=== PATIENT | female | born 1965 | race Caucasian/White ===

== ENCOUNTER 2025-06-14 13:23 | Emergency (ER) | payer MEDICARE, OTHER ==
--- NOTE | 2025-06-14 13:47 | ED ---
GI Bleed HPI - General Chief complaint: GI Bleed Stated complaint: Blood in Stool Time Seen by Provider: 06/14/25 13:34 Source: patient, RN notes reviewed Mode of arrival: ambulatory Limitations: no limitations - History of Present Illness Initial comments: This is a 59-year-old female who presents to the emergency department for abdominal pain and rectal bleeding. Patient states that last night after eating she had several episodes of vomiting as well as diarrhea. States that this morning the diarrhea persisted and she had 3 bowel movements with blood clots and bright red blood mixed in with her stool. She does continue to feel nauseous but has not had any additional episodes of vomiting. Also reports lower abdominal pain. She has a history of hernias and is unsure if it is related to that. Denies any history of rectal bleeding. Not taking any blood thinners. She did have a colonoscopy a few years ago and is not due to have another one for 4 years. She was found to have benign polyps that were removed. Denies any history of diverticulitis or diverticulosis. - Related Data Previous Rx's Medication Instructions Recorded Amoxic-Pot Clav 875-125Mg 1 tab PO Q12HR 10 Days #20 tab 06/14/25 [Augmentin 875-125] Ondansetron Odt [Zofran Odt] 4 mg PO Q8HR PRN #20 tab 06/14/25 Allergies Allergy/AdvReac Type Severity Reaction Status Date / Time guaifenesin [From Mucinex] Allergy Anaphylaxis Verified 06/14/25 13:30 morphine Allergy Rash/Hives Verified 06/14/25 13:30 ropinirole [From Requip] Allergy Unknown Verified 06/14/25 13:30 Review of Systems ROS Statement: Those systems with pertinent positive or pertinent negative responses have been documented in the HPI. ROS Other: All systems not noted in ROS Statement are negative. Past Medical History Past Medical History: Diabetes Mellitus, Hypertension History of Any Multi-Drug Resistant Organisms: None Reported Past Surgical History: Back Surgery, Hernia Repair Past Psychological History: No Psychological Hx Reported Smoking Status: Never smoker Past Alcohol Use History: Rare Past Drug Use History: None Reported General Exam Limitations: no limitations General appearance: alert, in no apparent distress Head exam: Present: atraumatic, normocephalic, normal inspection Respiratory exam: Present: normal lung sounds bilaterally. Absent: respiratory distress, wheezes, rales, rhonchi, stridor Cardiovascular Exam: Present: regular rate, normal rhythm GI/Abdominal exam: Present: soft, tenderness (Lower abdomen). Absent: distended Neurological exam: Present: alert, oriented X3, CN II-XII intact Psychiatric exam: Present: normal affect, normal mood Skin exam: Present: warm, dry, intact, normal color. Absent: rash Course Vital Signs 06/14/25 06/14/25 13:26 16:07 Temperature 97.9 F 98.1 F Pulse Rate 83 63 Respiratory 18 17 Rate Blood Pressure 149/88 119/70 O2 Sat by Pulse 99 99 Oximetry Medical Decision Making - Medical Decision Making This is a 59-year-old female who presents to the emergency department for abdominal pain and rectal bleeding. Was pt. sent in by a medical professional or institution? @ -No Did you speak to anyone other than the patient for history? @ -No Did you review nursing and triage notes? @ -Yes, and I agree, it is accurate with regards to the patient's symptoms. Were old charts reviewed? @ -No Differential Diagnosis? @ -Differential Abdominal Pain Women: Appendicitis, Cholecystitis, diverticulosis, ischemic bowel, pancreatitis, hepatitis, UTI, gastroenteritis, AAA, incarcerated hernia, bowel obstruction, constipation, inflammatory bowel, hepatitis, peptic ulcer disease, splenic i nfarction, perforated viscus, vulvitis, ovarian torsion, PID, kidney stone, placenta abruption, this is not meant to be an all-inclusive list EKG interpreted by me (3pts min.)? @ -Not obtained X-rays interpreted by me (1pt min.)? @ -Not obtained CT interpreted by me (1pt min.)? @ -CT scan of the abdomen and pelvis obtained. My interpretation identifies wall thickening of the descending colon. U/S interpreted by me (1pt. min.)? @ -Not obtained What testing was considered but not performed? (CT, X-rays, U/S, labs)? Why? @ -None What meds were considered but not given? Why? @ -None Did you discuss the management of the patient with other professionals? @ -No Did you reconcile home meds? @ -No Was smoking cessation discussed for >3mins.? @ -No Was critical care preformed (if so, how long)? @ -No Were there social determinants of health that impacted care today? How? (Homelessness, low income, unemployed, alcoholism, drug addiction, transportation, low edu. Level, literacy, decrease access to med. care, prison, rehab)? @ -No Was there de-escalation of care discussed even if they declined? (Discuss DNR or withdrawal of care, Hospice)? @ -No What co-morbidities impacted this encounter? (DM, HTN, Smoking, COPD, CAD, Cancer, CVA, Hep., AIDS, mental health diagnosis, sleep apnea, morbid obesity)? @ -DM Was patient admitted / discharged? @ -Discharged. Lab work demonstrates leukocytosis with a white blood cell count of 14.94 and was otherwise unremarkable. Hemoglobin within normal limits. CT scan of the abdomen and pelvis demonstrates edema and wall thickening in the descending colon consistent with acute diverticulitis or ascending colitis. There is no bowel obstruction, abscess, or free air. Findings reviewed with the patient. Bleeding is likely related to the diverticulitis and suspected diverticular bleed. She did feel that symptoms were controlled and she was comfortable going home to manage her symptoms. Augmentin and Zofran prescribed for further management of suspected diverticulitis. Strict return parameters discussed. Advised follow-up with her PCP for reevaluation. Patient discharged home in stable condition. Case discussed with ED attending Dr. Simms. Return precautions reviewed in depth, the patient is instructed to return to the emergency department with any new, worsening, or concerning symptoms. Patient verbalized understanding. Undiagnosed new problem with uncertain prognosis? @ -None Drug Therapy requiring intensive monitoring for toxicity (Heparin, Nitro, Insulin, Cardizem)? @ -None Were any procedures done? @ -None Diagnosis/symptom? @ -Diverticulitis, rectal bleeding Acute, or Chronic, or Acute on Chronic? @ -Acute Uncomplicated (without systemic symptoms) or Complicated (systemic symptoms)? @ -Uncomplicated Side effects of treatment? @ -None Exacerbation, Progression, or Severe Exacerbation] @ -Not applicable Poses a threat to life or bodily function? @ -No - Lab Data Result diagrams: 06/14/25 13:52 06/14/25 13:52 Lab Results 06/14/25 06/14/25 06/14/25 Range/Units 13:52 13:52 13:52 WBC 14.94 H (4.50-10.00) 10*3/uL RBC 4.72 (4.10-5.20) 10*6/uL Hgb 14.6 (12.0-15.0) g/dL Hct 41.9 (37.2-46.3) % MCV 88.8 (80.0-97.0) fL MCH 30.9 (27.0-32.0) pg MCHC 34.8 (32.0-37.0) g/dL Plt Count 278 (140-440) 10*3/uL MPV 9.6 (9.5-12.2) fL Immature Gran % (Auto) 0.4 % Neutrophils % 80.5 % Lymphocytes % 12.9 % Monocytes % 5.2 % Eosinophils % 0.6 % Basophils % 0.4 % Immature Gran # 0.06 H (0.00-0.04) 10*3/uL Neutrophils # 12.03 H (1.80-7.70) 10*3/uL Lymphocytes # 1.92 (0.90-5.00) 10*3/uL Monocytes # 0.78 (0.20-1.00) 10*3/uL Eosinophils # 0.09 (0.04-0.35) 10*3/uL Basophils # 0.06 (0.00-0.10) 10*3/uL PT 11.0 (10.0-12.5) sec INR 1.0 (<1.2) APTT 24.4 (22.0-30.0) sec Sodium 137 (137-145) mmol/L Potassium 4.1 (3.5-5.1) mmol/L Chloride 98 (98-107) mmol/L Carbon Dioxide 27 (22-30) mmol/L Anion Gap 12 mmol/L BUN 24 H (7-17) mg/dL Creatinine 0.66 (0.52-1.04) mg/dL Est GFR (CKD-EPI)AfAm >90 (>60 ml/min/1.73 sqM) Est GFR (CKD-EPI)NonAf >90 (>60 ml/min/1.73 sqM) Glucose 124 H (74-99) mg/dL Plasma Lactic Acid Darci (0.7-2.0) mmol/L Calcium 10.1 (8.4-10.2) mg/dL Magnesium 1.9 (1.6-2.3) mg/dL Total Bilirubin 1.5 H (0.2-1.3) mg/dL AST 36 (14-36) U/L ALT 27 (4-34) U/L Alkaline Phosphatase 67 (38-126) U/L Total Protein 7.5 (6.3-8.2) g/dL Albumin 4.6 (3.5-5.0) g/dL Lipase 52 (23-300) U/L 06/14/ Range/Units 13:52 WBC (4.50-10.00) 10*3/uL RBC (4.10-5.20) 10*6/uL Hgb (12.0-15.0) g/dL Hct (37.2-46.3) % MCV (80.0-97.0) fL MCH (27.0-32.0) pg MCHC (32.0-37.0) g/dL Plt Count (140-440) 10*3/uL MPV (9.5-12.2) fL Immature Gran % (Auto) % Neutrophils % % Lymphocytes % % Monocytes % % Eosinophils % % Basophils % % Immature Gran # (0.00-0.04) 10*3/uL Neutrophils # (1.80-7.70) 10*3/uL Lymphocytes # (0.90-5.00) 10*3/uL Monocytes # (0.20-1.00) 10*3/uL Eosinophils # (0.04-0.35) 10*3/uL Basophils # (0.00-0.10) 10*3/uL PT (10.0-12.5) sec INR (<1.2) APTT (22.0-30.0) sec Sodium (137-145) mmol/L Potassium (3.5-5.1) mmol/L Chloride (98-107) mmol/L Carbon Dioxide (22-30) mmol/L Anion Gap mmol/L BUN (7-17) mg/dL Creatinine (0.52-1.04) mg/dL Est GFR (CKD-EPI)AfAm (>60 ml/min/1.73 sqM) Est GFR (CKD-EPI)NonAf (>60 ml/min/1.73 sqM) Glucose (74-99) mg/dL Plasma Lactic Acid Darci 0.9 (0.7-2.0) mmol/L Calcium (8.4-10.2) mg/dL Magnesium (1.6-2.3) mg/dL Total Bilirubin (0.2-1.3) mg/dL AST (14-36) U/L ALT (4-34) U/L Alkaline Phosphatase (38-126) U/L Total Protein (6.3-8.2) g/dL Albumin (3.5-5.0) g/dL Lipase (23-300) U/L - Radiology Data Radiology results: report reviewed, image reviewed Disposition Clinical Impression: Diverticulitis, Rectal bleed Disposition: HOME SELF-CARE Instructions (If sedation given, give patient instructions): Diverticulitis (ED), Rectal Bleeding (ED), Diverticulitis Diet (ED) Additional Instructions: Return to the emergency department with any new, worsening, or concerning symptoms. Take the antibiotic as prescribed for 10 days. Take the Zofran up to every 8 hours as needed for nausea and vomiting. Follow up with your primary care provider in 1-2 days. Prescriptions: Amoxic-Pot Clav 875-125Mg [Augmentin 875-125] 1 tab PO Q12HR 10 Days #20 tab Ondansetron Odt [Zofran Odt] 4 mg PO Q8HR PRN #20 tab PRN Reason: Nausea And Vomiting Is patient prescribed a controlled substance at d/c from ED?: No Referrals: Pushpa Valerio MD [Primary Care Provider] - 1-2 days Time of Disposition: 15:39
[2025-06-14] MEDS: HYDROmorphone 0.5 MG/0.5 ML SYRINGE IVP STA (13:58)
[2025-06-14] MEDS: SODIUM CHLORIDE 0.9% 1,000 ML IV ONE (13:58)
[2025-06-14] MEDS: DICYCLOMINE 10 MG/ML 2 ML AMP IM STA (14:00)
[2025-06-14] MEDS: PANTOPRAZOLE 40 MG/10 ML VIAL IVP STA (14:00)
[2025-06-14] MEDS: ONDANSETRON 4 MG/2 ML VIAL IVP STA (14:00)
[2025-06-14 14:11] LABS: Basophils # (A) 0.06 10*3/uL (0.00-0.10); Basophils % (A) 0.4 %; Eosinophils # (A) 0.09 10*3/uL (0.04-0.35); Eosinophils % (A) 0.6 %; HCT 41.9 % (37.2-46.3); HGB 14.6 g/dL (12.0-15.0); Lymphocytes # (A) 1.92 10*3/uL (0.90-5.00); Lymphocytes % (A) 12.9 %; MCH 30.9 pg (27.0-32.0); MCHC 34.8 g/dL (32.0-37.0); MCV 88.8 fL (80.0-97.0); Monocytes # (A) 0.78 10*3/uL (0.20-1.00); Monocytes % (A) 5.2 %; Neutrophils # (A) 12.03 10*3/uL (1.80-7.70); Neutrophils % (A) 80.5 %; Platelet Count 278 10*3/uL (140-440); RBC 4.72 10*6/uL (4.10-5.20); RDW 11.9 % (11.5-14.5); WBC 14.94 10*3/uL (4.50-10.00)
[2025-06-14 14:25] LABS: Carbon Dioxide 27 mmol/L (22-30); Chloride 98 mmol/L (98-107); Glucose 124 mg/dL (74-99); Potassium 4.1 mmol/L (3.5-5.1); Sodium 137 mmol/L (137-145)
[2025-06-14 14:26] LABS: ALT 27 U/L (4-34); AST 36 U/L (14-36); African American GFR (CKD) >90 (>60 ml/min/1.73 sqM); Albumin 4.6 g/dL (3.5-5.0); Alkaline Phosphatase 67 U/L (38-126); Anion Gap 12 mmol/L; Blood Urea Nitrogen 24 mg/dL (7-17); Calcium 10.1 mg/dL (8.4-10.2); Lipase 52 U/L (23-300); Magnesium 1.9 mg/dL (1.6-2.3); Non-African American GFR(CKD) >90 (>60 ml/min/1.73 sqM); Total Protein 7.5 g/dL (6.3-8.2)
[2025-06-14 14:43] LABS: INR 1.0 (<1.2); Partial Thromboplastin Time 24.4 sec (22.0-30.0); Prothrombin Time 11.0 sec (10.0-12.5)
--- NOTE | 2025-06-14 15:24 | CT ---
EXAMINATION TYPE: CT abdomen pelvis w con DATE OF EXAM: 06/14/2025 COMPARISON: None CLINICAL INDICATION: Female, 59 years old with history of Abdominal pain, rectal bleeding; PHH, Abd p ain, rectal bleeding. TECHNIQUE: Performed without Oral Contrast and with IV Contrast, patient injected with 100 ml mL of Isovue 300. CT DLP: [address] CTDI: mGy Automated exposure control for dose reduction was used. FINDINGS: The lung bases are clear. The gallbladder is normal without distention, wall thickening, pericholecystic fluid or gallstones. T here is no biliary ductal dilatation. There is no focal mass or organomegaly involving the liver, pancreas, spleen or adrenal glands. There is no solid renal mass or hydronephrosis and there is homogeneous contrast enhancement of the r enal parenchyma. The caliber the abdominal aorta is normal is no retroperitoneal adenopathy or hemorr kristi. The bowel loops are normal in caliber and there is no evidence of dilatation or obstruction. There is diffuse edema and swelling of the wall of the descending colon with mild inflammation of the paracol ic fat consistent with mild diverticulitis or acute descending colon colitis. There is no free intrap eritoneal air or fluid. No pelvic mass, free fluid, abscess or adenopathy. 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 There are postsurgical changes of lumbar fusion from L3 through S1. There is a small periumbilical hernia containing fat. There is a 4.6 cm right paramedian anterior abd ominal hernia containing fat and no bowel. IMPRESSION: 1. Diffuse edema and wall thickening in the descending colon with mild paracolic fat infiltration con sistent with acute diverticulitis or ascending colon colitis. There is no bowel obstruction, abscess, free intraperitoneal air or fluid. 2. Two anterior abdominal wall hernias containing fat and no bowel described above. No significant abnormality seen. [facility], , 06/14/2025 3:22 PM
[2025-06-14 16:11] VITALS: BP 119/70; PULSE 63; RESP 17; TEMP 98.1
== END 2025-06-14 16:13 | disposition home or self-care (01) ==
LOC: EC 13:23
DX: K57.33 Diverticulitis of large intestine without perforation or abscess with bleeding (principal); E11.9 Type 2 diabetes mellitus without complications; Z88.5 Allergy status to narcotic agent; Z88.8 Allergy status to other drugs, medicaments and biological substances
CPT/HCPCS: 99285; 96372; 96374; 96375; 96361; 36415; 80053; 83605; 83690; 83735; 85025; 85610; 85730; 74177; J0500; J2405; Q9967; J2470